=== PATIENT | female | born 1960 | race Two or more races ===

== ENCOUNTER 2025-01-06 06:29 | Day surgery (SDC) | payer MEDICARE, MEDICAID ==
[~2025-01-06] VITALS: Ht 167.6 cm; Wt 81.6 kg
[2025-01-06] VITALS (8 sets, daily range): BP systolic 108–164; BP diastolic 63–86; PULSE 55–76; RESP 11–14; TEMP 97.6; O2SAT 94–96
[~2025-01-06 06:29] MED LIST: ALBU108A5 IN; ALPR0.254 PO; ARIP5TAB11 PO; ATOR-47 PO; CLOP75TA70 PO; ESCI1TAB36 PO; GABA-1250 PO; ISOS10TA2 PO; LEVO25TA6 PO; LORA-622 PO; METO25TA5 PO; OMEP20TA PO; OXYB5TAB14 PO
[2025-01-06] MEDS ORDERED: IODIXANOL 320MG/ML 100ML BTL IV ONE ×2 (07:25→08:16)
[2025-01-06] MEDS ORDERED: HEPARIN IN NS 1000Units/500mL 1,500 ML ONE (07:25)
[2025-01-06] MEDS ORDERED: VERAPAMIL 2.5MG/ML INJ 2ML VIAL IV ONE (07:54)
[2025-01-06] MEDS ORDERED: MIDAZOLAM HCL 2MG/2ML 2ml VIAL (1mg/ml) ONE (07:55)
[2025-01-06] MEDS ORDERED: fentaNYL CITRATE 100 MCG/2 ML VL ONE (07:55)
[2025-01-06] MEDS ORDERED: LIDOCAINE 2%HCL (LOCAL ANESTH.) INJ 20ML MDV ONE (07:55)
--- NOTE | 2025-01-06 08:01 | DVH ---
EXAM: XY CHEST PORTABLE Indication: pain Technique: Single frontal view of the chest was obtained Comparison: None FINDINGS: Lines and Tubes: None Lungs: No focal consolidation. Pleura: No effusion. No pneumothorax. Cardiomediastinal contours: Unremarkable Bones: No acute osseous abnormality. IMPRESSION: No acute cardiopulmonary disease.
[2025-01-06] MEDS ORDERED: HEPARIN SODIUM (PORCINE) 5000 UNITS/ML 1ML VIAL ONE (08:05)
[2025-01-06] MEDS ORDERED: ANGIOMAX 250 MG VIAL IV ONE (08:05)
[2025-01-06] MEDS ORDERED: SODIUM CHL 0.9% 0 ML ONE (08:05)
[2025-01-06 08:11] LABS: Potassium 4.2 mmol/L (3.5-5.1); Sodium 142 mmol/L (136-145)
[2025-01-06 08:12] LABS: Anion Gap 6 (5-15); Basophils # (auto) 0.1 10 ^3/uL (0-0.2); Basophils % (auto) 0.8 % (0.0-2.0); Calcium 9.8 mg/dL (8.7-10.4); Carbon Dioxide 28 mmol/L (20-31); Eosinophils # (auto) 0.1 10 ^3/uL (0-0.8); Eosinophils % (auto) 2.1 % (0.0-7.0); Hematocrit 38.5 % (36.0-46.0); Hemoglobin 12.9 g/dL (12.2-16.2); Lymphocytes # (auto) 1.8 10 ^3/uL (0.4-5.4); Lymphocytes % (auto) 25.8 % (10.0-50.0); Mean Corpuscular Hemoglobin 28.5 pg (28.0-32.0); Mean Corpuscular Hgb Conc. 33.5 g/dL (32.0-36.0); Mean Corpuscular Volume 85.2 fL (80.0-100.0); Monocytes # (auto) 0.7 10 ^3/uL (0-1.3); Monocytes % (auto) 9.6 % (0.0-12.0); Neutrophils # (auto) 4.3 10 ^3/uL (1.6-8.6); Neutrophils % (auto) 61.7 % (37.0-80.0); Platelet Count (auto) 214 10^3/uL (140-450); Red Blood Cells 4.52 10^6/uL (4.0-5.20); Red Cell Distribution Width 13.6 % (11.8-14.3); White Blood Cell 6.9 10^3/uL (4.4-10.8)
[2025-01-06 08:17] LABS: BUN/Creatinine Ratio 18.3 (10.0-20.0); Blood Urea Nitrogen 13 mg/dL (9-23); Glucose 103 mg/dL (74-106)
[2025-01-06 08:19] LABS: Chloride 108 mmol/L (98-107)
[2025-01-06 08:35] LABS: INR 0.99 (0.9-1.15); Partial Thromboplastin Time 25.2 SEC (24.5-34.5); Prothrombin Time 10.5 sec (9.3-11.8)
[2025-01-06] MEDS: SODIUM CHLORIDE 0.9% 500 ML IV ONE (08:50)
--- NOTE | 2025-01-06 09:02 | DVHOP2 ---
Operative Report Procedures performed: Left heart catheterization and bilateral coronary angiogram FFR of LAD Moderate sedation Diagnosis: Nonobstructive coronary artery disease Patent stents in diagonal/RCA Negative FFR of LAD lesions Cardiac suggestion for management: Optimized medical therapy Lifestyle and risk factor modifications Findings: LVEF: 65% LVEDP: 12 mm Hg There was no transaortic valve pressure gradient Left main: Left main was coming off the left sinus of Valsalva. Distal left main revealed up to 40% lesion. LAD: LAD was coming off the left main. Proximal LAD had 50% focal lesion. Mid LAD had 50% focal lesion. First diagonal was a large branching vessel with a patent stent inside it (no in-stent stenosis). Second and 3rd diagonal were small-sized vessels. FFR of the LAD lesions was performed and the result was 0.87 which was considered hemodynamically non-significant. LCX: LCX was a small-caliber vessel which came off the left main. There was mild diffuse disease in LCX. RCA: RCA was coming off the right sinus of Valsalva. It was the dominant vessel and provided RPDA/RPLS. There was patent stent (with no in-stent stenosis) in proximal-mid RCA. Distal RCA had focal 50% lesions. Presentation: Patient is a 64-year-old female who presented to the office with dyspnea on exertion. Does have history of coronary artery disease and has had PCI before. Past medical history also includes low back pain, neuropathy, overactive brother, hypothyroidism, hypertension, hyperlipidemia, COPD, GERD, occasional migraine and history of bilateral carotid revascularization. Nuclear stress test of November 2024 was abnormal. Echocardiogram of July 2024 revealed preserved left ventricular systolic function and no specific valvular disease. Patient was sent for cardiac catheterization. Procedure: After obtaining informed consent, the patient was brought to the produce laborer. She was prepped and draped in sterile fashion. 1 mg of Versed and 50 mcg of fentanyl were used for moderate sedation. Right radial artery was used for access site. Using modified Seldinger technique, right radial artery was accessed and a 6 Irish slender sheath was inserted into it. 0.5 mg of verapamil and 100 mcg of nitroglycerin were given as a cocktail into the right radial sheath. 4000 units of heparin was given peripherally. Five Irish tiger 4 diagnostic catheter was used to perform left heart catheterization (obtaining pressures and performing left ventriculography) and bilateral coronary angiography. We did recognize the disease is in LAD. We proceeded with FFR (Cathworks). The result of FFR was 0.87 and was considered hemodynamically non- significant. Total bleeding was less than 5 mL. There was no dissection/hematoma/perforation. Patient tolerated the procedure with no complication. Right radial artery access site was managed by deploying a TR band. Fluoroscopy time: 2.7 minutes contrast: 50 mL of AllanipaKISHAN Lanza MD Jan 06, 2025 09:02
[2025-01-06] MEDS ORDERED: CHOL100079 OR (09:17)
[2025-01-06] MEDS ORDERED: TIOT1AER2 IN (09:17)
[2025-01-06] MEDS ORDERED: COEN200C25 PO (09:17)
[2025-01-06] MEDS ORDERED: OMEG1400 PO (09:17)
[2025-01-06] MEDS ORDERED: GABA-1308 PO (09:17)
[2025-01-06] MEDS ORDERED: TURM500C3 OR (09:17)
[2025-01-06] MEDS ORDERED: BIOT1SUB SL (09:17)
[2025-01-06] MEDS ORDERED: ATOR40TA52 PO (09:17)
== END 2025-01-06 11:27 | disposition home or self-care (01) ==
LOC: CATH 06:29
PROVIDERS: ATTEND Internal Medicine Cardiovascular Disease
DX: I25.10 Atherosclerotic heart disease of native coronary artery without angina pectoris (principal); I11.9 Hypertensive heart disease without heart failure; E03.9 Hypothyroidism, unspecified; J44.9 Chronic obstructive pulmonary disease, unspecified; G62.9 Polyneuropathy, unspecified; Z95.5 Presence of coronary angioplasty implant and graft; Z98.890 Other specified postprocedural states; Z79.899 Other long term (current) drug therapy
CPT/HCPCS: 0523T; 36415; 71045; 80048; 85025; 85610; 85730; 93458; C1894; J1644; J2250; J3010; Q9967; 99152; 99153